=== PATIENT | male | born 1945 | race Caucasian/White ===

== ENCOUNTER 2023-07-06 18:37 | Inpatient (IN) | payer MEDICARE ==
[~2023-07-06 18:37] MED LIST: ISOVUE-370 76% MDV (1 ML CHARGE) ONE
[2023-07-06] MEDS ORDERED: niCARdipine 25 MG/10 ML SDV ONE (19:12)
[2023-07-06 19:16] LABS: #Eosinphils 0.1 thou/uL (0.0-0.7); #Monocytes 0.8 thou/uL (0.11-0.59); #Neutrophils 9.2 thou/uL (1.40-6.50); %Basophils 0.2 % (0.0-1.0); %Eosinophils 0.8 % (0.0-10.0); %Monocytes 6.7 % (0.0-10.0); %Neutrophils 77.8 % (42.0-75.0); Hematocrit 45.2 % (42.0-52.0); Hemoglobin 14.7 g/dL (14.0-18.0); Mean Corpuscular HGB CONC 32.5 g/dL (32.0-36.0); Mean Corpuscular Hemoglobin 27.3 pg (27.0-31.0); Mean Platelet Volume 9.2 fL (7.4-10.4); Platelet Count 207 10x3/uL (130-400); RBC Distribution Width 13.8 % (11.5-14.5); Red Blood Cell (RBC) Count 5.38 mill/uL (4.70-6.10); White Blood Cell (WBC) Count 11.9 10x3/uL (4.8-10.8)
[2023-07-06 19:29] LABS: ALT (SGPT) 10 U/L (8-55); AST (SGOT) 10 U/L (5-34); Albumin 4.2 g/dL (3.4-4.8); Alkaline Phosphatase 74 U/L (40-110); Anion Gap 11 mmol/L (10-20); BUN (Urea Nitrogen) 14 mg/dL (8.4-25.7); Bilirubin, Total 0.8 mg/dL (0.2-1.2); Calc. Creatinine Clearance 0 mL/min (70-130); Calcium 9.3 mg/dL (7.8-10.44); Carbon Dioxide 25 mmol/L (23-31); Chloride 107 mmol/L (98-107); Estimated GFR 90; Globulin 3.3 g/dL (2.4-3.5); Glucose 117 mg/dL (83-110); Potassium 3.9 mmol/L (3.5-5.1); Protein, Total 7.5 g/dL (5.8-8.1); Sodium 139 mmol/L (136-145)
[2023-07-06 19:31] LABS: Prothrombin Time 13.6 sec (12.0-14.7)
[2023-07-06 19:32] LABS: PTT 29.8 sec (22.9-36.1); Troponin I Less than 0.010 ng/mL (< 0.028)
[2023-07-06] MEDS ORDERED: Ondansetron PF 4 MG/2 ML Vial IVP PRN (19:42)
[2023-07-06] MEDS ORDERED: Bisacodyl 10 MG SUPP PR PRN (19:42)
[2023-07-06] MEDS ORDERED: Bisacodyl 5 MG TAB PO PRN (19:42)
[2023-07-06] MEDS ORDERED: Senokot S 8.6-50 MG TAB PO PRN (19:42)
[2023-07-06] MEDS ORDERED: Acetaminophen 650 MG Suppository PR PRN (19:42)
[2023-07-06] MEDS ORDERED: Aspirin Chewable 81 MG TAB ONE (19:49)
[2023-07-06] MEDS ORDERED: Aspirin 325 MG TAB ONE (19:50)
[2023-07-06] MEDS ORDERED: Ipratropium/Albuterol 3 ML NEB ONE (19:52)
[2023-07-06] MEDS ORDERED: Labetalol HCl 100 MG/20 ML VIAL SLOW IVP PRN (20:19)
[2023-07-06 22:00] VITALS: BMI 19.3
[2023-07-06] MEDS: Sodium Chloride 0.9% 1,000 ML IV SCH (22:46)
[2023-07-06] MEDS: Atorvastatin Calcium 40 MG TAB PO SCH (22:46)
[2023-07-06 23:08] LABS: Bacteria/HPF None Seen HPF (None Seen); Bilirubin Negative (Negative); Blood, Urine Negative (Negative); CAUTI Indications for Culture Alt mental st,lethar; Clarity Clear (Clear); Glucose, Urine (Dipstick) 70 mg/dL (Negative); Ketone, Urine Negative (Negative); Leukocyte Negative Leu/uL (Negative); Nitrite Negative (Negative); Protein, Urine (Dipstick) Negative (Neg-Trace); RBC/HPF 0-3 HPF (0-3); Specific Gravity, Urine 1.027 (1.002-1.036); Squamous Epithelial None Seen HPF (0-3); Urobilinogen Normal mg/dL (Less than 2); WBC/HPF 0-3 HPF (0-3); pH, Urine 7.5 (5.0-9.0)
[2023-07-06 23:10] LABS: Urine Culture Reflex No No
[2023-07-06] MEDS: Ipratropium/Albuterol 3 ML NEB NEB PRN (23:43)
[2023-07-07 05:09] LABS: #Basophils 0.1 thou/uL (0.0-0.2); #Eosinphils 0.1 thou/uL (0.0-0.7); #Monocytes 0.7 thou/uL (0.11-0.59); #Neutrophils 7.1 thou/uL (1.40-6.50); %Basophils 0.5 % (0.0-1.0); %Eosinophils 0.6 % (0.0-10.0); %Lymphocytes 20.4 % (21.0-51.0); %Monocytes 7.2 % (0.0-10.0); Hemoglobin 14.6 g/dL (14.0-18.0); Mean Corpuscular HGB CONC 32.4 g/dL (32.0-36.0); Mean Corpuscular Hemoglobin 26.9 pg (27.0-31.0); Mean Corpuscular Volume 82.9 fl (78.0-98.0); Mean Platelet Volume 9.3 fL (7.4-10.4); Platelet Count 215 10x3/uL (130-400); RBC Distribution Width 13.9 % (11.5-14.5); Red Blood Cell (RBC) Count 5.43 mill/uL (4.70-6.10)
[2023-07-07 05:36] LABS: Hemoglobin A1c 5.5 % (4.0-6.0)
[2023-07-07 05:46] LABS: ALT (SGPT) 9 U/L (8-55); AST (SGOT) 11 U/L (5-34); Albumin 4.1 g/dL (3.4-4.8); Alkaline Phosphatase 70 U/L (40-110); Anion Gap 13 mmol/L (10-20); BUN (Urea Nitrogen) 12 mg/dL (8.4-25.7); Bilirubin, Total 1.2 mg/dL (0.2-1.2); Calc. Creatinine Clearance 64 mL/min (70-130); Calcium 9.5 mg/dL (7.8-10.44); Carbon Dioxide 24 mmol/L (23-31); Cardiac Risk 5.2 (Less than 4.5); Chloride 105 mmol/L (98-107); Cholesterol 183 mg/dl (< 200 Desired); Estimated GFR 92; Globulin 3.2 g/dL (2.4-3.5); Glucose 104 mg/dL (83-110); HDL Cholesterol 35 mg/dL (>60 Neg Risk); LDL Cholesterol, Calculated 129 mg/dL; Potassium 3.8 mmol/L (3.5-5.1); Protein, Total 7.3 g/dL (5.8-8.1); Sodium 138 mmol/L (136-145); Triglycerides 97 mg/dL (Less than 150)
[2023-07-07] MEDS ORDERED: Lorazepam 2 MG/ML VIAL SLOW IVP SCH (08:45)
[2023-07-07] MEDS: Aspirin 81 mg Enteric Coated Tablet PO SCH (08:52)
[2023-07-07] MEDS: Aspirin 300 MG Suppository PR SCH (10:26)
[2023-07-07] MEDS: Lorazepam 2 MG/ML VIAL SLOW IVP SCH (14:42)
[2023-07-08] MEDS: Hydrochlorothiazide 25 MG TAB PO SCH (08:56)
[2023-07-08] MEDS: Aspirin Chewable 81 MG TAB PO SCH (08:56)
[2023-07-08] MEDS: FLUoxetine HCl 20 MG CAP PO SCH (08:56)
[2023-07-08] MEDS ORDERED: Hydrochlorothiazide 25 MG TAB PO SCH (09:00)
[2023-07-08] MEDS ORDERED: FLUoxetine HCl 20 MG CAP PO SCH (09:00)
[2023-07-08] MEDS: Lactated Ringer's 1,000 ML IV SCH (17:45)
[2023-07-09 04:44] LABS: #Basophils 0.1 thou/uL (0.0-0.2); #Eosinphils 0.2 thou/uL (0.0-0.7); #Neutrophils 6.1 thou/uL (1.40-6.50); %Basophils 0.6 % (0.0-1.0); %Eosinophils 1.7 % (0.0-10.0); %Lymphocytes 23.4 % (21.0-51.0); %Monocytes 10.9 % (0.0-10.0); %Neutrophils 63.1 % (42.0-75.0); Hematocrit 45.5 % (42.0-52.0); Hemoglobin 14.8 g/dL (14.0-18.0); Mean Corpuscular HGB CONC 32.5 g/dL (32.0-36.0); Mean Corpuscular Hemoglobin 27.6 pg (27.0-31.0); Mean Corpuscular Volume 84.7 fl (78.0-98.0); Platelet Count 200 10x3/uL (130-400); Red Blood Cell (RBC) Count 5.37 mill/uL (4.70-6.10); White Blood Cell (WBC) Count 9.6 10x3/uL (4.8-10.8)
[2023-07-09 05:37] LABS: Anion Gap 16 mmol/L (10-20); BUN (Urea Nitrogen) 24 mg/dL (8.4-25.7); Calc. Creatinine Clearance 56 mL/min (70-130); Calcium 9.2 mg/dL (7.8-10.44); Carbon Dioxide 25 mmol/L (23-31); Chloride 103 mmol/L (98-107); Estimated GFR 89; Glucose 70 mg/dL (83-110); Potassium 3.6 mmol/L (3.5-5.1); Sodium 140 mmol/L (136-145)
[2023-07-09] MEDS: NIFEdipine XL 30 MG ER.TAB PO SCH (10:34)
[2023-07-09] MEDS: Lactated Ringer's 1,000 ML IV SCH ×2 (18:41→23:08)
[2023-07-10 04:49] LABS: #Basophils 0.1 thou/uL (0.0-0.2); #Eosinphils 0.2 thou/uL (0.0-0.7); #Neutrophils 5.2 thou/uL (1.40-6.50); %Basophils 0.8 % (0.0-1.0); %Eosinophils 2.3 % (0.0-10.0); %Lymphocytes 26.5 % (21.0-51.0); %Monocytes 11.6 % (0.0-10.0); %Neutrophils 58.4 % (42.0-75.0); Hematocrit 46.4 % (42.0-52.0); Hemoglobin 15.1 g/dL (14.0-18.0); Mean Corpuscular HGB CONC 32.5 g/dL (32.0-36.0); Mean Corpuscular Hemoglobin 27.1 pg (27.0-31.0); Mean Corpuscular Volume 83.3 fl (78.0-98.0); Mean Platelet Volume 9.1 fL (7.4-10.4); Platelet Count 196 10x3/uL (130-400); RBC Distribution Width 13.8 % (11.5-14.5); Red Blood Cell (RBC) Count 5.57 mill/uL (4.70-6.10)
[2023-07-10 05:37] LABS: Anion Gap 13 mmol/L (10-20); BUN (Urea Nitrogen) 24 mg/dL (8.4-25.7); Calc. Creatinine Clearance 59 mL/min (70-130); Calcium 8.8 mg/dL (7.8-10.44); Carbon Dioxide 25 mmol/L (23-31); Chloride 103 mmol/L (98-107); Estimated GFR 90; Glucose 70 mg/dL (83-110); Sodium 137 mmol/L (136-145)
[2023-07-10] MEDS ORDERED: Labetalol HCl 100 MG/20 ML VIAL SLOW IVP PRN ×2 (07:39)
[2023-07-10] MEDS: Enoxaparin 30 MG (0.3 mL) SYRINGE SC SCH (08:36)
[2023-07-10] MEDS: hydrALAZINE 20 MG/ML VIAL SLOW IVP PRN (08:40)
[2023-07-10] MEDS ORDERED: Barium Sulfate 96% 176 GM BOT (xray ONLY) ONE (10:38)
[2023-07-10] MEDS: Labetalol HCl 100 MG/20 ML VIAL SLOW IVP SCH (17:10)
[2023-07-10] MEDS: Acetaminophen 325 MG TAB PO PRN (20:41)
[2023-07-11] MEDS: Lisinopril 20 MG TAB PO SCH (15:33)
[2023-07-11] MEDS: NIFEdipine XL 30 MG ER.TAB PO SCH (15:33)
[2023-07-12] MEDS: NIFEdipine XL 60 MG ER.TAB PO SCH (09:20)
[2023-07-12] MEDS: Calcium Carbonate 500 MG ChewTAB PO PRN (09:20)
[2023-07-12] MEDS: Lisinopril 20 MG TAB PO SCH (09:20)
[2023-07-12] MEDS: FLU VACC QS2023(65UP)/MF59C/PF 60 MCG/0.5 ML SYRINGE IM ONE (11:33)
[2023-07-12 19:43] VITALS: BP 148/61; TEMP 97.8
== END 2023-07-12 19:45 | disposition swing bed (61) | DRG 65 ==
LOC: ERS 18:37 → SUATTDRO 18:37 → 2SE 19:42 → UNDODISIN 07-10 16:30
PROVIDERS: ADMIT Internal Medicine; ATTEND Hospitalist
PROC: 4A00X4Z Measurement of Central Nervous Electrical Activity, External Approach (ICD-10-PCS; principal; 2023-07-07)
DX: I63.9 Cerebral infarction, unspecified (principal); G81.94 Hemiplegia, unspecified affecting left nondominant side; F39 Unspecified mood [affective] disorder; Z51.5 Encounter for palliative care; Z66 Do not resuscitate; I10 Essential (primary) hypertension; R29.90 Unspecified symptoms and signs involving the nervous system; J44.9 Chronic obstructive pulmonary disease, unspecified; G93.89 Other specified disorders of brain; R47.1 Dysarthria and anarthria; R13.12 Dysphagia, oropharyngeal phase; R47.01 Aphasia; Z87.891 Personal history of nicotine dependence
CPT/HCPCS: 36415; 36416; 70450; 70496; 70498; 70551; 74230; 80048; 80053; 80061; 81001; 83036; 83735; 84443; 84484; 85025; 85610; 85730; 93005; 93306; 94640; 94760; 95711; 95819; 96365; J0360; J1650; J2060; J7050; J7120; J7620